=== PATIENT | male | born 1985 | race Caucasian/White ===

== ENCOUNTER 2020-04-01 12:12 | Emergency (ER) | payer BC ==
--- NOTE | 2020-04-01 13:45 | EDM.PDOC ---
ED HPI GENERAL MEDICAL PROBLEM - General Chief Complaint: Flank Pain Stated Complaint: POSS KIDNEY STONE Time Seen by Provider: 04/01/20 12:28 Source of Information: Reports: Patient History Limitations: Reports: No Limitations - History of Present Illness INITIAL COMMENTS - FREE TEXT/NARRATIVE: Patient is a 34-year-old male presenting to the emergency department with complaints that he may have a kidney stone. He states a few weeks back he was having left-sided flank pain. This resolved, however over the last week he has been having intermittent discomfort in his right flank. At this point, the pain is mild and tolerable, however he does have occasional episodes of worsening discomfort. He denies any obvious blood in his urine. He has had no nausea and vomiting. Denies any fever or chills. Right Flank Pain Score (Numeric/FACES): 2 - Related Data Allergies Allergy/AdvReac Type Severity Reaction Status Date / Time No Known Allergies Allergy Verified 04/01/20 12:20 Home Meds: Home Meds Hydrocodone/Acetaminophen [Hydrocodone-Acetamin 5-325 mg] 1 each PO Q4H PRN #20 tablet 04/01/20 [Rx] Ondansetron [Zofran ODT] 4 mg PO Q6H PRN #10 tab.dis 04/01/20 [Rx] Tamsulosin [Tamsulosin 24 Hr] 0.4 mg PO DAILY #15 cap.er 04/01/20 [Rx] Past Medical History Genitourinary History: Reports: Renal Calculus Hematologic History: Reports: Other (See Below) Other Hematologic History: ITP - Infectious Disease History Infectious Disease History: Reports: None Social & Family History - Tobacco Use Tobacco Use Status *Q: Current Every Day Tobacco User Years of Tobacco use: 15 Packs/Tins Daily: 1 - Caffeine Use Caffeine Use: Reports: None - Recreational Drug Use Recreational Drug Use: No ED ROS GENERAL - Review of Systems Review Of Systems: See Below Constitutional: Reports: No Symptoms. Denies: Fever, Chills HEENT: Reports: No Symptoms Respiratory: Reports: No Symptoms Cardiovascular: Reports: No Symptoms Endocrine: Reports: No Symptoms GI/Abdominal: Reports: No Symptoms. Denies: Abdominal Pain, Diarrhea, Nausea, Vomiting : Reports: Flank Pain. Denies: Hematuria Musculoskeletal: Reports: No Symptoms Skin: Reports: No Symptoms Neurological: Reports: No Symptoms Psychiatric: Reports: No Symptoms Hematologic/Lymphatic: Reports: No Symptoms Immunologic: Reports: No Symptoms ED EXAM, RENAL/ - Physical Exam Exam: See Below General Appearance: Alert, WD/WN, No Apparent Distress Respiratory/Chest: No Respiratory Distress, Lungs Clear, Normal Breath Sounds, No Accessory Muscle Use, Chest Non-Tender Cardiovascular: Normal Peripheral Pulses, Regular Rate, Rhythm, No Edema, No Gallop, No JVD, No Murmur, No Rub GI/Abdominal: Normal Bowel Sounds, Soft, Non-Tender, No Organomegaly, No Distention, No Abnormal Bruit, No Mass Back Exam: Normal Inspection, Full Range of Motion, CVA Tenderness (R). No: CVA Tenderness (L) Extremities: Normal Inspection, Normal Range of Motion, Non-Tender, Normal Capillary Refill, No Pedal Edema Neurological: Alert, Oriented, CN II-XII Intact, Normal Cognition, Normal Gait, Normal Reflexes, No Motor/Sensory Deficits Psychiatric: Normal Affect, Normal Mood Skin Exam: Warm, Dry, Intact, Normal Color, No Rash Course - Vital Signs Last Recorded V/S: Last Vital Signs Temp 97 F 04/01/20 12:18 Pulse 60 04/01/20 12:18 Resp 16 04/01/20 12:18 BP 142/94 H 04/01/20 12:18 Pulse Ox 98 04/01/20 12:18 - Orders/Labs/Meds Orders: Active Orders 24 hr Category Date Time Status Abdomen Pelvis wo Cont [CT] Stat Exams 04/01/20 12:35 Taken Labs: Laboratory Tests 04/01/20 04/01/20 04/01/20 Range/Units 12:40 12:45 12:45 WBC 8.84 (4.23-9.07) K/mm3 RBC 5.08 (4.63-6.08) M/mm3 Hgb 15.2 (13.7-17.5) gm/dl Hct 44.2 (40.1-51.0) % MCV 87.0 (79.0-92.2) fl MCH 29.9 (25.7-32.2) pg MCHC 34.4 (32.2-35.5) g/dl RDW Std Deviation 38.7 (35.1-43.9) fL Plt Count 198 (163-337) K/mm3 MPV 9.7 (9.4-12.3) fl Neut % (Auto) 56.5 (34.0-67.9) % Lymph % (Auto) 26.4 (21.8-53.1) % [place] % (Auto) 13.6 H (5.3-12.2) % Eos % (Auto) 2.9 (0.8-7.0) Baso % (Auto) 0.5 (0.1-1.2) % Neut # (Auto) 5.00 (1.78-5.38) K/mm3 Lymph # (Auto) 2.33 (1.32-3.57) K/mm3 [place] # (Auto) 1.20 H (0.30-0.82) K/mm3 Eos # (Auto) 0.26 (0.04-0.54) K/mm3 Baso # (Auto) 0.04 (0.01-0.08) K/mm3 Sodium 138 (136-145) mEq/L Potassium 3.9 (3.5-5.1) mEq/L Chloride 104 (98-107) mEq/L Carbon Dioxide 23 (21-32) mEq/L Anion Gap 14.9 (5-15) BUN 21 H (7-18) mg/dL Creatinine 1.5 H (0.7-1.3) mg/dL Est Cr Clr Drug Dosing 64.26 mL/min Estimated GFR (MDRD) 53 (>60) mL/min BUN/Creatinine Ratio 14.0 (14-18) Glucose 92 (74-106) mg/dL Calcium 8.5 (8.5-10.1) mg/dL Total Bilirubin 0.5 (0.2-1.0) mg/dL AST 17 (15-37) U/L ALT 29 (16-63) U/L Alkaline Phosphatase 57 (46-116) U/L Total Protein 6.9 (6.4-8.2) g/dl Albumin 3.7 (3.4-5.0) g/dl Globulin 3.2 gm/dL Albumin/Globulin Ratio 1.2 (1-2) Urine Color Yellow (Yellow) Urine Appearance Clear (Clear) Urine pH 6.5 (5.0-8.0) Ur Specific [place] 1.025 (1.005-1.030) Urine Protein Trace H (Negative) Urine Glucose (UA) Negative (Negative) Urine Ketones Negative (Negative) Urine Occult Blood 3+ H (Negative) Urine Nitrite Negative (Negative) Urine Bilirubin Negative (Negative) Urine Urobilinogen 0.2 (0.2-1.0) Ur Leukocyte Esterase Negative (Negative) Urine RBC 10-20 H (0-5) /hpf Urine WBC 0-5 (0-5) /hpf Ur Squamous Epith Cells 0-5 (0-5) /hpf Urine Bacteria Not seen (FEW) /hpf Urine Mucus Not seen (FEW) /hpf - Re-Assessments/Exams Free Text/Narrative Re-Assessment/Exam: Patient is a 34-year-old male presenting to the emergency department with complaints of a possible kidney stone. He describes right-sided flank pain intermittently over the last week to week and a half. He is in no severe discomfort at this time. Describes the pain is mild. I have ordered a CT scan of the abdomen pelvis, CBC, CMP, and urinalysis. 04/01/20 13:40 Hematology was significant for a BUN slightly elevated at 21, creatinine slightly elevated at 1.5 urinalysis showed 3+ occult blood and 10-20 RBCs. It was leukocyte esterase and nitrite negative. There is no bacteria. CT scan of the abdomen pelvis shows bilateral nephrolithiasis. 1 cm obstructing calculus at the right UVJ junction with severe right-sided hydronephrosis. Since patient does not have a urinary tract infection, this is not an infected stone therefore is not considered emergent. It is highly doubtful however that he will pass a 1 cm centimeter stone without intervention. We will start him on Flomax, [place], and Zofran. We will send him home with a urine strainer. I will send a referral to urology, Dr. Ryan, in [place] for evaluation. Recommend the patient call his office first thing Friday morning. Discussed that if he should develop fever, chills, nausea, or vomiting, he should either return to the emergency department here in [place] or go directly to the emergency department and [facility] in [place] as we not have urology services available here. Patient verbalized understanding of this. Discharge instructions as documented. Departure - Departure Time of Disposition: 13:42 Disposition: Home, Self-Care 01 Condition: Good Clinical Impression: Kidney stone on right side - Discharge Information *PRESCRIPTION DRUG MONITORING PROGRAM REVIEWED*: Yes *COPY OF PRESCRIPTION DRUG MONITORING REPORT IN PATIENT ANGELA: No Prescriptions: Tamsulosin [Tamsulosin 24 Hr] 0.4 mg PO DAILY #15 cap.er Hydrocodone/Acetaminophen [Hydrocodone-Acetamin 5-325 mg] 1 each PO Q4H PRN #20 tablet PRN Reason: Pain Ondansetron [Zofran ODT] 4 mg PO Q6H PRN #10 tab.dis PRN Reason: Nausea/Vomiting Instructions: Kidney Stones, [id number] Referrals: Jose Harris MD [Ordering Only Provider] - Additional Instructions: You were seen in the emergency department today for right-sided flank pain over the course of the last week. Your work-up included blood work, urinalysis, and a CT scan of your abdomen pelvis. Results of your work-up showed blood in your urine as well as a 1 cm obstructing stone in your right ureter near your bladder. As we discussed, due to the size of the stone, is highly unlikely that you will be able to pass this without intervention. You have been started on Flomax to help facilitate passage of the stone, [place] for pain, and Zofran for nausea. You have also been sent home with a urine strainer. Recommend that you strain your urine each time you go to look for passage of the stone. A referral has been sent to to Dr. Harris, urologist in [place]. Recommend that you call his office Friday morning to set up an appointment for evaluation. If you should develop worsening symptoms such as fever, chills or uncontrolled nausea and vomiting, I would recommend return to this emergency department or go direc tly to the emergency department at [facility] in [place] where urology services are available. Sepsis Event Note (ED) - Evaluation Sepsis Screening Result: No Definite Risk - Focused Exam Vital Signs: Vital Signs Temp Pulse Resp BP Pulse Ox 04/01/20 12:18 97 F 60 16 142/94 H 98 - My Orders Last 24 Hours: My Active Orders 04/01/20 12:35 Abdomen Pelvis wo Cont [CT] Stat - Assessment/Plan Last 24 Hours: My Active Orders 04/01/20 12:35 Abdomen Pelvis wo Cont [CT] Stat
== END 2020-04-01 14:00 | disposition home or self-care (01) ==
LOC: JD.ED 12:12
DX: N13.2 Hydronephrosis with renal and ureteral calculous obstruction (principal); F17.210 Nicotine dependence, cigarettes, uncomplicated
CPT/HCPCS: 36415; 74176; 80053; 81001; 85025; 99284; 99284-25

== ENCOUNTER 2020-09-11 18:21 | Emergency (ER) | payer BC ==
--- NOTE | 2020-09-11 19:04 | EDM.PDOC ---
ED HPI GENERAL MEDICAL PROBLEM - General Chief Complaint: Eye Problems Stated Complaint: eye pain Time Seen by Provider: 09/11/20 18:57 - History of Present Illness INITIAL COMMENTS - FREE TEXT/NARRATIVE: 35-year-old male presents the emergency room with a foreign body sensation in his left eye. Yesterday evening he thinks he got a piece of rust or perhaps grinding wheel caught in his eye. He was wearing a full face cover and still managed to get it in there. He feels like he has a sensation stuck on top of his eye behind his upper eyelid. His vision is a little blurry at times. However his vision was 20/20 in both eyes with corrective lenses this evening. He has some pretty significant with discomfort with this. No prior history of eye injuries. He has not any fevers or chills. He states he is up-to-date on his tetanus. - Related Data Allergies Allergy/AdvReac Type Severity Reaction Status Date / Time No Known Allergies Allergy Verified 09/11/20 18:37 Home Meds: Home Meds Hydrocodone/Acetaminophen [Hydrocodone-Acetamin 5-325 mg] 1 each PO Q4H PRN #20 tablet 04/01/20 [Rx] Ondansetron [Zofran ODT] 4 mg PO Q6H PRN #10 tab.dis 04/01/20 [Rx] Tamsulosin [Tamsulosin 24 Hr] 0.4 mg PO DAILY #15 cap.er 04/01/20 [Rx] Hydrocodone/Acetaminophen [Hydrocodone-Acetamin 5-325 mg] 1 - 2 each PO 15 PRN #15 tablet 09/11/20 [Rx] Past Medical History HEENT History: Reports: Impaired Vision Genitourinary History: Reports: Renal Calculus Hematologic History: Reports: Other (See Below) Other Hematologic History: ITP - Infectious Disease History Infectious Disease History: Reports: None Social & Family History - Tobacco Use Tobacco Use Status *Q: Current Every Day Tobacco User Years of Tobacco use: 20 Packs/Tins Daily: 1 - Caffeine Use Caffeine Use: Reports: Soda - Recreational Drug Use Recreational Drug Use: No ED ROS GENERAL - Review of Systems Review Of Systems: See Below Constitutional: Reports: No Symptoms Respiratory: Reports: No Symptoms Cardiovascular: Reports: No Symptoms GI/Abdominal: Reports: No Symptoms ED EXAM GENERAL W FULL EYE - Physical Exam Exam: See Below Exam Limited By: No Limitations General Appearance: Alert, No Apparent Distress Eye Exam: Left Eye: Conjunctival Injection, Vision Changes (Blurry vision), Bilateral Eye: EOMI, PERRL Visual Acuity (R) 20/: 20 Visual Acuity (L) 20/: 20 With Correction: Yes Eyelids: Bilateral: Normal Appearance Conjunctiva & Sclera: Bilateral: Normal Appearance Cornea Exam: Left: Foreign Body (Between the 1030 and 12 o'clock position midway up the sclera), Examined with Flourescein Extraocular Movements: Bilateral: Intact Pupils: Normal Accommodation Pupillary Reaction: Bilateral: Brisk Anterior Chamber: Bilateral: Normal Appearance Posterior Chamber: Left: Normal Funduscopic Head: Atraumatic, Normocephalic Neck: Normal Inspection, Supple, Non-Tender, Full Range of Motion Respiratory/Chest: No Respiratory Distress, Lungs Clear, Normal Breath Sounds Cardiovascular: Regular Rate, Rhythm, No Edema, No Murmur ED EYE w/ Add Procedure - Eye Procedure Alcaine Drops Administered: No (Paracaine was used) Eye FB Removal: Other (Eyespud) Antibiotic Oinment/Drps Admin: Left Eye Course - Vital Signs Last Recorded V/S: Last Vital Signs Temp 36.3 C 09/11/20 18:32 Pulse 66 09/11/20 18:32 Resp 12 09/11/20 18:32 BP 128/79 09/11/20 18:50 Pulse Ox 97 09/11/20 18:32 - Orders/Labs/Meds Meds: Medications Discontinued Medications Generic Name Dose Route Start Last Admin Trade Name Drewq PRN Reason Stop Dose Admin Erythromycin 1 gm 09/11/20 19:49 09/11/20 19:54 Erythromycin Base 0.5% Ophth Oint 1 Gm Tube EYEL09/11/20 19:50 1 gm ONETIME ONE Administration Fluorescein Sodium 1 mg 09/11/20 19:10 09/11/20 19:15 Fluorescein 1 Mg Ophth Strip EYEL09/11/20 19:11 1 mg ONETIME ONE Administration Proparacaine HCl 0.965735 ml 09/11/20 19:10 09/11/20 19:15 Proparacaine 0.5% Ophth Soln 15 Ml Bottle EYEL09/11/20 19:11 0.132884 ml ONETIME ONE Administration Departure - Departure Time of Disposition: 19:51 Disposition: Home, Self-Care 01 Clinical Impression: Foreign body of left cornea - Discharge Information Prescriptions: Hydrocodone/Acetaminophen [Hydrocodone-Acetamin 5-325 mg] 1 - 2 each PO 15 PRN #15 tablet PRN Reason: Pain Instructions: Eye Foreign Body, [id number] Referrals: Diana Hancock MARKETING ACCOUNT MANAGER [Primary Care Provider] - Forms: ED Department Discharge Additional Instructions: Return to the emergency room with any questions problems or worsening symptoms. You have been given some antibiotic ointment use about a fourth of an inch to 1/2 inch in behind your lower eyelid every couple hours while you are awake. You can discontinue this when the eye stops hurting. You have been given some pain pills take 1 or 2 every 6 hours as needed for pain do not drive or return to work within 12 hours using this medication. This has been sent electronically to the [place] [facility] in [facility]. Follow-up with your eye doctor tomorrow for recheck. Sepsis Event Note (ED) - Evaluation Sepsis Screening Result: No Definite Risk
[2020-09-11] MEDS ORDERED: Fluorescein 1 MG Ophth Strip EYELF ONE (19:10)
[2020-09-11] MEDS ORDERED: Proparacaine 0.5% Ophth Soln 15 ML Bottle EYELF ONE (19:10)
[2020-09-11] MEDS ORDERED: Erythromycin Base 0.5% Ophth Oint 1 GM Tube EYELF ONE (19:49)
== END 2020-09-11 20:11 | disposition home or self-care (01) ==
LOC: JD.ED 18:21
DX: T15.02XA Foreign body in cornea, left eye, initial encounter (principal); Z79.899 Other long term (current) drug therapy; Z72.0 Tobacco use
CPT/HCPCS: 65220; 99283; A9270; 65205